=== PATIENT | male | born 1990 | race Caucasian/White ===

== ENCOUNTER 2016-10-10 22:00 | Emergency (ER) | payer OTHER | END 2016-10-10 22:47 | disposition home or self-care (01) | LOC: ER 22:00 | DX: S61.216A Laceration without foreign body of right little finger without damage to nail, initial encounter (principal); W45.8XXA Other foreign body or object entering through skin, initial encounter; Y92.019 Unspecified place in single-family (private) house as the place of occurrence of the external cause; H54.40 Blindness, one eye, unspecified eye; F79 Unspecified intellectual disabilities | CPT/HCPCS: 99070; 99283 ==